=== PATIENT | female | born 1995 | race Asian ===

== ENCOUNTER 2017-09-11 22:48 | Emergency (ER) | payer OTHER ==
[~2017-09-11] VITALS: Ht 154.9 cm; Wt 50.0 kg
[~2017-09-11 22:48] MED LIST: ABSORICA10 MG PO; FLEXERIL5 MG PO; MEDROL 4MG DOSPA4 MG PO; NO HOME MEDICATIONS; NORCO 325 MG-51 TAB PO; PREDNISONE20 MG PO; TYLENOL 500MG500 MG PO; ZITHROMAX 250M250 MG PO
[2017-09-11 22:57] VITALS: BP 132/68; TEMP 97.5
[2017-09-12 01:15] VITALS: PULSE 98
== END 2017-09-12 00:39 | disposition home or self-care (01) ==
LOC: COL.ER 22:48
DX: T21.12XA Burn of first degree of abdominal wall, initial encounter (principal); X10.0XXA Contact with hot drinks, initial encounter

== ENCOUNTER 2018-05-03 00:29 | Emergency (ER) | payer OTHER ==
[~2018-05-03] VITALS: Ht 154.9 cm; Wt 51.8 kg
[2018-05-03 00:57] VITALS: TEMP 98
[2018-05-03] MEDS ORDERED: ADVIL200 MG PO (02:42)
[2018-05-03 03:02] VITALS: BP 98/58; PULSE 73
== END 2018-05-03 03:02 | disposition home or self-care (01) ==
LOC: COL.ER 00:29
DX: T23.131A Burn of first degree of multiple right fingers (nail), not including thumb, initial encounter (principal); X15.8XXA Contact with other hot household appliances, initial encounter; Y92.009 Unspecified place in unspecified non-institutional (private) residence as the place of occurrence of the external cause

== ENCOUNTER 2018-08-07 06:46 | Emergency (ER) | payer OTHER ==
[~2018-08-07] VITALS: Ht 154.9 cm; Wt 51.4 kg
[~2018-08-07 06:46] MED LIST changes: +ADVIL200 MG PO
[2018-08-07 06:55] VITALS: TEMP 98.5
[2018-08-07] MEDS ORDERED: DESYREL 50MG50 MG PO (06:58)
[2018-08-07] MEDS ORDERED: PROZAC 10MG10 MG PO (06:58)
[2018-08-07] MEDS ORDERED: ZITHROMAX Z PA250 MG PO (08:07)
[2018-08-07 08:43] VITALS: BP 108/62; PULSE 78
== END 2018-08-07 08:44 | disposition home or self-care (01) ==
LOC: COL.ER 06:46
DX: J06.9 Acute upper respiratory infection, unspecified (principal); R07.81 Pleurodynia; F41.9 Anxiety disorder, unspecified; F32.9 Major depressive disorder, single episode, unspecified